=== PATIENT | female | born 1975 | race Caucasian/White ===

== ENCOUNTER 2016-11-14 14:54 | Emergency (ER) | payer OTHER ==
[~2016-11-14] VITALS: Ht 157.5 cm; Wt 81.8 kg
[~2016-11-14 14:54] MED LIST: ATEN25TA7 PO; GLYB2.5T5 PO; LEVO75TA36 PO; PREN1TAB47 PO
[2016-11-14 14:59] VITALS: BP 171/94; PULSE 125; RESP 16; O2SAT 99
[2016-11-14] MEDS ORDERED: ESCI10TA52 PO (15:04)
[2016-11-14] MEDS ORDERED: LEVO100T6 PO (15:04)
[2016-11-14] MEDS ORDERED: LIOT5TAB3 PO (15:04)
--- NOTE | 2016-11-14 15:18 | ED.REPORT ---
HPI-Chest Pain 40 and Over Date of Service Nov 14, 2016 ED Provider: Randy Miles MD A 41 year old female with a history of hypertension, anxiety, hypothyroidism on T3 and T4 and morbid obesity presents to the ED complaining of chest pain that began an hour and 30 minutes prior to arrival. Patient is still currently experiencing mild pain. She describes the pain as a "tightening" pressure that radiates from the left shoulder blade down her left arm. She describes the pain as a tingling in her arms. Chest pressure today was associated with dizziness, lightheadedness and nausea. Patient states that her symptoms initially felt like an anxiety attack or acid reflex but became increasingly worse. She states that her pain is worse than her similar previous episodes. Patient was sitting at her computer when her symptoms began. She took DayQuil at 1100 this morning because of a recent cold. Symptoms associated withe the cold include headache, sinus pressure, "dry" congestion and subjective fever. Patient denies any chance of and is currently in her menstrual cycle. Varicose veins have become progressively worse over the past 6 months. She has recently been using hormone therapy for menstrual regularity. She denies similar chest pain when exercising. Nursing Notes Stated Complaint: CHEST PAIN/PRESSURE, NECK/SHOULDER PAIN Chief Complaint: Chest Pain Nursing Notes Reviewed: Yes Allergies: Coded Allergies: JAIME Inhibitors (Verified Allergy, Severe, intensifies fibromyalgia, ) erythromycin ethylsuccinate (Verified Allergy, Unknown, 11/14/16) loratadine (Verified Allergy, Unknown, 11/14/16) Scheduled Atenolol (Atenolol) 25 Mg Tablet 12.5 MG PO DAILY Escitalopram Oxalate (Escitalopram Oxalate) 10 Mg Tablet 10 MG PO DAILY Levothyroxine (Levothyroxine) 100 Mcg Tablet 100 MCG PO DAILY Liothyronine Sodium (Liothyronine Sodium) 5 Mcg Tablet 5 MG PO BID General Time Seen by : 15:13 Chief Complaint Chest pain Hx Obtained From: Patient Arrived By: Walk-in Sudden in Onset?: Yes Onset Occurred: 1 - 4 hours ago (1.5 hrs ) Symptom Duration: Since onset Location: : Chest left: Chest right Quality: Pressure Radiation: : Arm right: Shoulder left Severity: Current: Mild Severity: Maximum: Moderate Associated with: Reports: Diaphoresis, Dizziness, Lightheaded Pertinent Negative: Pt denies other symptoms Recent Healthcare: No recent doctor visit, No recent hospitalization Risk Factors )( CAD Risk Stratification Hypertension Risk factors reviewed )( TAD Risk Stratification Hypertension Risk factors reviewed )( PE Risk Stratification Risk factors reviewed Past Medical History Past Medical History Notes: PCP: Dr. Janet Bae Natropathic: Dr. Atul Capone (manages hypothyroidism) Past Medical History 1. Hypertension 2. Hypothyrodism 3. Anxiety 4. Depression 5. Fibromyalgia Past Surgical History Tubal ligation Family History Hypertension Mitral valve prolapse - Mother Denies PE or DVT Denies: CAD < 40 years old, Coronary artery disease Smoking History Never Smoker (Denies tobacco use) Social History Alcohol Use: "Social" Drug Use: THC Other Social History: Good social support, Local resident Ambulatory Status Independent Review of Systems Constitutional: Reports: Fever (Subjective ) Respiratory: Reports: Non-productive cough Cardiovascular: Reports: Chest pain GI: Reports: Nausea Skin: Reports Diaphoresis Neurologic: Reports: Dizziness, Headache (Recent cold ), Lightheaded, Denies: Change LOC Psychiatric: Reports: Anxiety Complete sys rev & neg: except as marked. Ears / Nose / Throat: Reports: Nasal congestion (Recent cold ), Sinus problem ( Sinus pressure with recent cold ) Physical Exam Initial Vital Signs Vital Signs (First) Date Time Temp Pulse Resp B/P Pulse Ox O2 Delivery O2 Flow Rate FiO2 11/14/16 14:59 36.9 125 16 171/94 99 Room Air Initial VS: Reviewed Head / Eyes: Atraumatic, Normocephalic, PERRL Skin: Warm, Dry, No cyanosis Neurologic: Alert, Oriented, Nonfocal Psychiatric: Mood/affect normal, Behavior normal, Normal thought content General/Constitutional: Awake, Alert Respiratory / Chest: Atraumatic, Breath sounds NL, Breath sounds = bilat, No respiratory distress Cardiovascular: Heart rate NL, Regular rhythm Heart Sounds / Murmur: Positive: Murmur present... (III/ to Left sternal boarder) Abdomen: Atraumatic, Soft, Non-tender, BS normoactive Lower Extremity / Pelvis / MS: Atraumatic, Neurologic intact, Vascular intact Upper Extremity / MS: Atraumatic, Inspection NL, Neurologic intact, Vascular intact Interpretation & Diagnostics Lab Results Interpretation Result Diagram: 11/14/16 1535 11/14/16 1535 Test 11/14/16 15:35 11/14/16 17:43 White Blood Count 7.6th/mm3 (3.8-10.1) Red Blood Count 4.21mil/mm3 (3.90-5.20) Hemoglobin 13.0g/dL (12.0-15.6) Hematocrit 39.7% (35.0-46.0) Mean Corpuscular Volume 94.3fL (81-100) Mean Corpuscular Hemoglobin 30.9pg (27.0-35.0) Mean Corpuscular Hemoglobin Concent 32.7% (32.0-37.0) Red Cell Distribution Width 12.3% (12.3-15.4) Platelet Count 266bil/L (150-400) Neutrophils (%) (Auto) 58.5% (40-74) Lymphocytes (%) (Auto) 27.9% (14-46) Monocytes (%) (Auto) 7.2% (4-12) Eosinophils (%) (Auto) 6.0% (0-5) Basophils (%) (Auto) 0.3% (0-3) D-Dimer < 0.50mg/L FEU (<0.50) Sodium Level 138mEq/L (134-144) Potassium Level 3.9mEq/L (3.5-5.2) Chloride Level 100mEq/L (97-108) Carbon Dioxide Level 22mmol/L (18-29) Blood Urea Nitrogen 9mg/dL (6-24) Creatinine 0.71mg/dL (0.57-1.00) Estimat Glomerular Filtration Rate 129mL/min (>59) Glucose Level 152mg/dL (60-99) Calcium Level 9.4mg/dL (8.5-10.1) Magnesium Level 2.0mg/dL (1.6-2.6) Total Bilirubin 0.3mg/dL (0.0-1.2) Aspartate Amino Transf (AST/SGOT) 25U/L (0-50) Alanine Aminotransferase (ALT/SGPT) 17U/L (0-32) Alkaline Phosphatase 81U/L (25-150) Total Protein 7.9g/dL (6.4-8.4) Albumin 4.3g/dL (3.4-5.0) Thyroid Stimulating Hormone (TSH) 0.079uIU/mL (0.450-4.500) Troponin T < 0.010ug/L (0.0-0.011) ECG Interpretation ECG Interpretation: Sinus tachycardia Rate 115 bpm Time: 15:11 Interpreted by: ED physician X-Ray Chest Interpretation Chest Xray Interpretation: IMPRESSION: Negative chest. No acute cardiopulmonary process is evident. Dictated by: Troy Medina M.D. on 11/14/2016 at 14:47 Interpretation / Wet Read by: Interpret - ED physician Re-Eval/Medical Decision Time of Eval: 17:27 Patient Status: Condition improved Re-Evaluation/Progress Note: Patient reports that symptoms have improved but has some mild SOB and heart palpitations. She is given the option to take a beta cholo. All of the patient's questions are adressed. She understands and agrees with the treatment plan. Patient denies any changes in thyroid medication but admits to recent change in diet and physical activity. Time of Eval: 18:23 Patient Status: Condition improved Re-Evaluation/Progress Note: She reports that she is feeling much better and is ready to be discharged. Counseled Regarding: Diagnosis, Lab results, Need for follow-up, When/why to return to ED Discharge & Departure Primary Impression: Non-cardiac chest pain Additional Impressions: Decreased thyroid stimulating hormone (TSH) level Sinus tachycardia Disposition: Home Discharge Condition All VS Reviewed: Yes Condition: Improved Patient Instructions: Hypothyroidism (ED) Additional Instructions: Thank you for trusting us with your care this evening. Your emergency department evaluation today included interview, examination, lab work, EKG and chest X-ray. Your results are reassuring that there is no dangerous cause for concern at this time, however, your TSH levels were low today at .079. We also noted an elevated heart rate at rest- at 120. This should be further evaluated by the provider managing your thyroid medication VIMAL. We started atenolol 12.5mg daily to help control heart rate. Please return to the emergency department for any new or worsening conditions including increased chest pain/shortness of breath or fevers. Referrals: Janet Stockton MD Scribe Attestation Portions of this note were transcribed by Chapito Burroughs. I, Dr. Miles personally performed the history, physical exam and medical decision-making; I reviewed and confirmed the accuracy of the information in the transcribed note. Signed by: Renetta Lainez, 11/14/16 1900. copies to: Janet Stockton MD, Donald L MD Nov 14, 2016 15:17 CHAPITO BURROUGHS Nov 14, 2016 15:47 Randy Miles MD Nov 14, 2016 15:17 CHAPITO BURROUGHS Nov 14, 2016 15:47
[2016-11-14 15:41] LABS: BASOPHILS % (AUTO) 0.3 % (0-3); MONOCYTES % (AUTO) 7.2 % (4-12); Mean Corpuscular Hemoglobin 30.9 pg (27.0-35.0); Mean Corpuscular Volume 94.3 fL (81-100); NEUTROPHILS % (AUTO) 58.5 % (40-74); Platelet Count 266 bil/L (150-400)
--- NOTE | 2016-11-14 15:49 | DRSVH ---
PROCEDURE: X-RAY CHEST ONE VIEW, PORTABLE ([id number]) INDICATIONS: chest pain TECHNIQUE: One view of the chest was acquired. COMPARISON: [facility] - [place], [place], CHEST 2VW, 05/18/2010, 19:40. FINDINGS: Surgical changes and devices: None. Lungs and pleura: No pleural effusions or pneumothorax. Lungs are clear. Mediastinum: Mediastinal contours appear normal. Heart size is normal. Bones and chest wall: No suspicious bony lesions. Overlying soft tissues appear unremarkable. IMPRESSION: Negative chest. No acute cardiopulmonary process is evident. Dictated by: Troy Medina M.D. on 11/14/2016 at 14:47 Approved by: Troy Medina M.D. on 11/14/2016 at 14:47
[2016-11-14 16:18] LABS: TROPONIN T < 0.010 ug/L (0.0-0.011)
[2016-11-14 16:20] VITALS: BP 151/80; PULSE 116; O2SAT 96
[2016-11-14 16:30] VITALS: BP 145/84; PULSE 116; O2SAT 96
[2016-11-14 16:59] VITALS: BP 137/56; PULSE 115
[2016-11-14 17:40] VITALS: BP 129/60; PULSE 98
[2016-11-14] MEDS ORDERED: ATEN25TA PO (18:33)
[2016-11-14 18:50] VITALS: BP 112/61; PULSE 87; RESP 20; O2SAT 97
== END 2016-11-14 18:52 | disposition home or self-care (01) ==
LOC: SED 14:54
DX: R07.89 Other chest pain (principal); R00.0 Tachycardia, unspecified; R94.6 Abnormal results of thyroid function studies; I10 Essential (primary) hypertension; E03.9 Hypothyroidism, unspecified; M79.7 Fibromyalgia; Z88.1 Allergy status to other antibiotic agents; Z88.8 Allergy status to other drugs, medicaments and biological substances